=== PATIENT | male | born 1955 | race Caucasian/White ===

== ENCOUNTER 2017-02-01 12:16 | Emergency (ER) | payer MEDICARE, OTHER | END 2017-02-01 13:38 | disposition home or self-care (01) | LOC: ER 12:16 | DX: J44.1 Chronic obstructive pulmonary disease with (acute) exacerbation (principal); J18.9 Pneumonia, unspecified organism; I10 Essential (primary) hypertension; I25.10 Atherosclerotic heart disease of native coronary artery without angina pectoris; F17.210 Nicotine dependence, cigarettes, uncomplicated; Z88.5 Allergy status to narcotic agent; Z88.6 Allergy status to analgesic agent | CPT/HCPCS: 87502 ==